=== PATIENT | male | born 1985 | race Caucasian/White ===

== ENCOUNTER 2017-10-24 12:19 | Emergency (ER) | payer OTHER ==
[2017-10-24 12:25] VITALS: RESP 16
--- NOTE | 2017-10-24 12:59 | EDPHY ---
H & P Stated Complaint: Noticed "raised area" suprapubic area this am after a run; tender to touch Time Seen by Provider: 10/24/17 12:58 HPI/ROS: HPI: This is a 32-year-old male presents with Chief Complaint: Noticed "raised area" suprapubic area this am after a run; tender to touch Location: Groin, upper thighs Quality: Rash Duration: 3-4 days Signs and Symptoms: no fever, no nausea, no vomiting, no hematemesis, no blood in stool, no abdominal bloating, no diarrhea, no back pain, no urinary symptoms , no testicular/groin pain, no indigestion, no chest pain, no shortness of breath Timing: Gradual onset Severity: Mild Context: Patient was in [place] this weekend and took baths and swam in friend's pool. He was wearing swimming trunks for several hours. The next day he developed a rash that is nonpruritic on his upper thighs. Today, after he completed his run, he noted 2 raised areas in his pubic area that are extremely tender to touch and red in appearance. Wears boxer briefs. Denies any upper respiratory symptoms. Modifying Factors: None Comment: ROS: see HPI Constitutional: No fever, no chills, no weight loss Eyes: No blurred vision Respiratory: No shortness of breath, no cough Cardiovascular: No chest pain, no palpitations Gastrointestinal: No nausea, no vomiting, no diarrhea, no hematemesis, no blood in stool Genitourinary: No dysuria, no blood in urine Extremities: No myalgias, no edema Neurologic: No weakness, no numbness Skin: No rashes, no petechiae Hematologic: No bruising, no bleeding MEDICAL/SURGICAL/SOCIAL HISTORY: Medical history: Generally healthy. Does not take any regular medications. Surgical history: Denies Social history: Employed. CONSTITUTIONAL: awake and alert, no obvious distress HEENT: Atraumatic and normocephalic, PERRL, EOMI. Tympanic membranes clear. Oropharynx clear, no exudate and moist pink mucosa. Airway patent. No lymphadenopathy. No meningismus. Cardiovascular: Normal S1/S2, regular rate, regular rhythm, without murmur rub or gallop. PULMONARY/CHEST: Symmetrical and nontender. Clear to auscultation bilaterally. Good air movement. No accessory muscle usage. ABDOMEN: Soft, nondistended, nontender, no rebound, no guarding, no peritoneal signs, no masses or organomegaly. No CVAT. EXTREMITIES: 2/2 pulses, strength 5/5, no deformities, no clubbing, no cyanosis or edema. NEUROLOGICAL: no focal neuro deficits. GCS 15. SKIN: Warm and dry, raised papules on upper thighs that are scattered. Two, raised 1-2 mm mildly indurated ingrown hairs pubic area. No petechiae. Good capillary refill. Source: Patient Exam Limitations: No limitations - Personal History Current Tetanus Diphtheria and Acellular Pertussis (TDAP): Yes - Medical/Surgical History Other PMH: appy @ age 10 - Social History Smoking Status: Never smoked Constitutional: Initial Vital Signs Temperature (C) 36.4 C 10/24/17 12:22 Heart Rate 66 10/24/17 12:22 Respiratory Rate 16 10/24/17 12:22 Blood Pressure 130/75 H 10/24/17 12:22 O2 Sat (%) 97 10/24/17 12:22 O2 Delivery Mode Room Air Allergies/Adverse Reactions: No Known Allergies Allergy (Unverified 10/24/17 12:25) Home Medications: Medication Instructions Recorded Doxycycline Hyclate 100 mg PO BID #14 capsule 10/24/17 Ketoconazole 2% [Nizoral 2% Cream 1 kin TP BID #60 g 10/24/17 (*)] Medical Decision Making ED Course/Re-evaluation: Patient clearly has folliculitis on his pubic area and upper thighs. Etiologies bacterial versus fungal. Consideration gram-negative infection Patient prefers to start with topical fungal cream and cover for staphylococcal folliculitis; combined with proper hygiene Given oral antibiotics and topical antifungal cream. Patient understands if rash does not clear with current treatment plan; fluoroquinolone may need to be prescribed. No signs of neurovascular compromise/tenting of skin/compartment syndrome/ extremities and joints examined above and below area of concern and are neurovascularly intact/cellulitis. This patient was seen under the supervision of my secondary supervising physician. I evaluated care for this patient independently. Differential Diagnosis: Differential diagnosis includes but is not limited to folliculitis, MRSA, Pseudomonas. Departure - Departure Disposition: Home, Routine, Self-Care Clinical Impression: Folliculitis Condition: Good Instructions: Folliculitis (ED) Additional Instructions: Please avoid swimming pools, hot tubs and baths until rash clears. Wash with mild soap and water 1-2 times daily. Pat dry. Take all of the antibiotics until complete and apply topical antifungal cream twice daily times 7-10 days. Referrals: [facility],. [Clinic] - 5-7 days, if not improved Prescriptions: Doxycycline Hyclate 100 mg PO BID #14 capsule Ketoconazole 2% [Nizoral 2% Cream (*)] 1 kin TP BID #60 g
[2017-10-24 14:22] VITALS: BP 128/67; PULSE 70; TEMP 98.1; O2SAT 98
== END 2017-10-24 14:22 | disposition home or self-care (01) ==
DX: L73.9 Follicular disorder, unspecified (principal)